=== PATIENT | male | born 1930 | race Asian ===

== ENCOUNTER 2016-08-17 18:47 | Emergency (ER) | payer MEDICARE, BC ==
[2016-08-17] MEDS ORDERED: ONDANSETRON 4 MG/2 ML VIAL IVP STA ×2 (19:43→20:54)
[2016-08-17] MEDS ORDERED: ONDANSETRON 4 MG/2 ML VIAL ONE ×2 (19:47→20:57)
[2016-08-17] MEDS ORDERED: diphenhydrAMINE INJ 50 MG/ML VIAL IVP STA (20:54)
[2016-08-17] MEDS ORDERED: SODIUM CHLORIDE 0.9% 1,000 ML IV STA (20:55)
[2016-08-17] MEDS ORDERED: SODIUM CHLORIDE 0.9% 1,000 ML IV ONE (20:57)
[2016-08-17] MEDS ORDERED: diphenhydrAMINE INJ 50 MG/ML VIAL ONE (20:57)
[2016-08-17] MEDS ORDERED: predniSONE 20 MG TABLET PO STA (22:33)
[2016-08-17] MEDS ORDERED: MECLIZINE 12.5 MG TABLET PO STA (22:33)
[2016-08-17] MEDS ORDERED: MECLIZINE 12.5 MG TABLET PO ONE (22:35)
[2016-08-17] MEDS ORDERED: predniSONE 20 MG TABLET ONE (22:35)
[2016-08-17] MEDS ORDERED: ONDANSETRON ODT 4 MG Prepack 2 TL STA (23:30)
[2016-08-17] MEDS ORDERED: ONDANSETRON ODT 4 MG Prepack 2 TL ONE (23:31)
== END 2016-08-17 23:52 | disposition home or self-care (01) ==
DX: E11.65 Type 2 diabetes mellitus with hyperglycemia (principal); Z79.4 Long term (current) use of insulin; Z96.41 Presence of insulin pump (external) (internal); R11.2 Nausea with vomiting, unspecified; T78.40XA Allergy, unspecified, initial encounter; X58.XXXA Exposure to other specified factors, initial encounter; I45.2 Bifascicular block; R94.31 Abnormal electrocardiogram [ECG] [EKG]; I50.9 Heart failure, unspecified; I25.10 Atherosclerotic heart disease of native coronary artery without angina pectoris; Z95.1 Presence of aortocoronary bypass graft; I25.2 Old myocardial infarction; I48.91 Unspecified atrial fibrillation; Z79.82 Long term (current) use of aspirin
CPT/HCPCS: 36415; 80053; 83690; 84484; 85025; 85610; 86850; 86900; 86901; 93005; 96361; 96374; 96375; 96376; 99284; A9270; J7512

== ENCOUNTER 2020-08-24 20:57 | Emergency (ER) | payer MEDICARE, BC ==
[2020-08-24] MEDS ORDERED: DEXAMETHASONE 10 MG/ML VIAL PO STA (22:37)
[2020-08-24] MEDS ORDERED: KETOROLAC 60 MG/2 ML VIAL IM STA (22:37)
[2020-08-24] MEDS ORDERED: CHERRY SYRUP 10 ML UDC PO ONE (22:37)
--- NOTE | 2020-08-24 22:40 | ED Physician Documentation ---
PD HPI NECK PAIN - Stated complaint Stated Complaint: SORE NECK - Chief complaint Chief Complaint: General - History obtained from History obtained from: Patient, Family - History of Present Illness Timing - onset: How many days ago (3) Timing - duration: Days (3) Timing - details: Abrupt onset, Still present Location: Mid, Lower, Left Quality: Pain, Spasm, Sharp Associated symptoms: No: Fever, Weakness, Numbness, Incontinent of urine, Unable to urinate, Hematuria, Incontinent of stool Improves with: Rest, Position Worsened by: Movement Contributing factors: Other (slept with grandson next to him with an elbow in the neck) Similar symptoms before: Has not had sx before Recently seen: Not recently seen - Additional information Additional information: 89-year-old male with a history of coronary artery disease hypertension and congestive heart failure spends 4 months of the year out in on [facility] and otherwise is seen in [facility]. He comes into the emerge department this evening complaining of a stiff neck. Indicates 3 days ago he was sleeping with his grandson who had an elbow in his neck and he awoke in the morning with a stiff neck and is continuing to have some difficulty moving his neck around he has about a 6-7 out of 10 pain with movement if he is not moving at all he is s omewhat uncomfortable. He is having a hard time sleeping at night because of this pain. Review of Systems Constitutional: denies: Fever Eyes: denies: Decreased vision Ears: denies: Ear pain Nose: denies: Rhinorrhea / runny nose, Congestion Throat: denies: Sore throat Cardiac: denies: Chest pain / pressure Respiratory: reports: Cough (10 days ago finished 10 days of coughing). denies: Dyspnea GI: denies: Nausea, Vomiting : denies: Dysuria Skin: denies: Rash Musculoskeletal: reports: Neck pain. denies: Back pain, Extremity pain PD PAST MEDICAL HISTORY - Past Medical History Past Medical History: Yes Cardiovascular: Congestive heart failure, Coronary artery disease, [place], Atrial fibrillation Endocrine/Autoimmune: Type 2 diabetes GI: Hiatal hernia - Past Surgical History Past Surgical History: Yes Cardiovascular: CABG, Coronary stent - Present Medications Home Medications: Ambulatory Orders Medication Instructions Recorded Confirmed Aspirin 81 mg DAILY 08/20/14 08/17/16 Clopidogrel Bisulfate [Plavix] 75 mg DAILY 08/20/14 08/17/16 Ezetimibe [Zetia] 10 mg DAILY 08/20/14 08/17/16 Fluticasone [Flonase] 1 spray BID 08/20/14 08/17/16 Furosemide [Lasix] 20 mg DAILY 08/20/14 08/17/16 Losartan [Cozaar] 25 mg DAILY 08/20/14 08/17/16 Lutein 25 mg DAILY 08/20/14 08/17/16 Metoprolol Succinate 75 mg DAILY 08/20/14 08/17/16 Nitroglycerin [Nitrostat] 0.4 mg DAILY PRN 08/20/14 09/14/14 Rosuvastatin Calcium [Crestor] 20 mg DAILY 08/20/14 08/17/16 Albuterol Sulf [Ventolin Hfa PRN 08/17/16 Inhaler] Insulin Pump Cartridge [T:Flex] 08/17/16 Meclizine [Antivert] 25 mg PO Q6H PRN #14 tablet 08/17/16 Ondansetron Odt [Zofran] 4 mg TL Q6H PRN #10 tablet 08/17/16 predniSONE [Prednisone] 40 mg PO DAILY 3 Days tablet 08/17/16 raNITIdine [Zantac] 150 mg BID 08/17/16 08/17/16 Cyclobenzaprine [Flexeril] 10 mg PO TID PRN #20 tablet 08/24/20 - Allergies Allergies/Adverse Reactions: Allergies Allergy/AdvReac Type Severity Reaction Status Date / Time No Known Drug Allergies Allergy Verified 08/24/20 21:03 - Social History Does the pt smoke?: No Smoking Status: Never smoker Does the pt drink ETOH?: No Does the pt have substance abuse?: No - Immunizations Immunizations are current?: Yes - POLST Patient has POLST: No PD ED PE NORMAL - Vitals Vital signs reviewed: Yes (hypertensive ) - General General: Alert and oriented X 3, No acute distress, Well developed/nourished - HEENT HEENT: Atraumatic, PERRL, EOMI - Neck Neck: Supple, no meningeal sign, No bony TTP, Other (There is some mild point tenderness to the sternocleidomastoid on the left side as well as the trapezius with some spasm in these muscles. He is able to flex and extend and rotate the neck he has pain with rotation to the right.) - Cardiac Cardiac: RRR, No murmur - Respiratory Respiratory: No respiratory distress, Clear bilaterally - Abdomen Abdomen: Soft, Non tender - Derm Derm: Normal color, Warm and dry, No rash - Extremities Extremities: No deformity, No edema - Neuro Neuro: Alert and oriented X 3, hand paster 2-12 intact, No motor deficit, No sensory deficit, Normal speech Eye Opening: Spontaneous Motor: Obeys Commands Verbal: Oriented GCS Score: 15 - Psych Psych: Normal mood, Normal affect Results - Vitals Vitals: Vital Signs - 24 hr 08/24/20 21:03 Temperature 36.9 C Heart Rate 87 Respiratory 18 Rate Blood Pressure 142/68 H O2 Saturation 97 Oxygen O2 Source Room air PD MEDICAL DECISION MAKING - ED course Complexity details: considered differential, d/w patient, d/w family ED course: 89-year-old male has a stiff neck after sleeping in an odd position and he has not had relief in 3 days. He is administered dexamethasone 10 mg and Toradol [address] him on a short course of Flexeril as needed. Departure - Departure Disposition: 01 Home, Self Care Clinical Impression: Acute torticollis Condition: Stable Instructions: Torticollis Follow-Up: YENY MALDONADO MD [Physician No Access] - Prescriptions: Cyclobenzaprine [Flexeril] 10 mg PO TID PRN #20 tablet PRN Reason: Spasms
[2020-08-24] MEDS ORDERED: CYCLOBENZAPRINE 10 MG Prepack 2 PO PRN (22:44)
[2020-08-24 23:36] VITALS: BP 145/65
== END 2020-08-24 23:36 | disposition home or self-care (01) ==
LOC: ED 20:57
DX: M43.6 Torticollis (principal); I25.10 Atherosclerotic heart disease of native coronary artery without angina pectoris; I11.0 Hypertensive heart disease with heart failure; I50.9 Heart failure, unspecified; Z95.1 Presence of aortocoronary bypass graft; Z95.5 Presence of coronary angioplasty implant and graft; Z79.02 Long term (current) use of antithrombotics/antiplatelets; Z79.82 Long term (current) use of aspirin; E11.9 Type 2 diabetes mellitus without complications
CPT/HCPCS: 99283; 99284; A9270

== ENCOUNTER 2020-09-01 18:21 | Outpatient (CLI) | payer MEDICARE, BC | END 2020-09-01 18:22 | disposition critical access hospital (66) | LOC: EMS 18:21 | DX: R27.0 Ataxia, unspecified (principal); R47.81 Slurred speech | CPT/HCPCS: A0425; A0427 ==

== ENCOUNTER 2020-09-01 18:35 | Inpatient (IN) | payer MEDICARE, BC ==
--- NOTE | 2020-09-01 18:45 | ED Physician Documentation ---
PD HPI FOCAL NEURO - Stated complaint Stated Complaint: STROKE SYMPTOMS - Chief complaint Chief Complaint: Neuro - History obtained from History obtained from: Patient, EMS - Additional information Additional information: Patient was at home with his family today when they noticed him have onset of difficulty walking and speaking at approximately 1545 today. This is about 3 hours prior to arrival. Has been constant since that time. EMS states mild right hand weakness when they evaluated him. He has a longstanding cardiac history with 3 cardiac stents and a bypass. No history of stroke per EMS. Upon arrival of the , she states that the symptoms might have started at about [id number] today, she is uncertain. Review of Systems Ten Systems: 10 systems reviewed and negative Constitutional: denies: Fever, Chills Ears: denies: Ear pain Nose: denies: Rhinorrhea / runny nose, Congestion Respiratory: denies: Cough GI: denies: Nausea, Vomiting, Diarrhea Skin: denies: Rash Musculoskeletal: denies: Neck pain, Back pain Neurologic: denies: Focal weakness, Numbness, Headache, Head injury PD PAST MEDICAL HISTORY - Past Medical History Past Medical History: Yes Cardiovascular: Congestive heart failure, Coronary artery disease, [place], Atrial fibrillation Endocrine/Autoimmune: Type 2 diabetes GI: Hiatal hernia - Past Surgical History Past Surgical History: Yes Cardiovascular: CABG, Coronary stent - Present Medications Home Medications: Ambulatory Orders Medication Instructions Recorded Confirmed Aspirin 81 mg DAILY 08/20/14 08/17/16 Clopidogrel Bisulfate [Plavix] 75 mg DAILY 08/20/14 08/17/16 Ezetimibe [Zetia] 10 mg DAILY 08/20/14 08/17/16 Fluticasone [Flonase] 1 spray BID 08/20/14 08/17/16 Furosemide [Lasix] 20 mg DAILY 08/20/14 08/17/16 Losartan [Cozaar] 25 mg DAILY 08/20/14 08/17/16 Lutein 25 mg DAILY 08/20/14 08/17/16 Metoprolol Succinate 75 mg DAILY 08/20/14 08/17/16 Nitroglycerin [Nitrostat] 0.4 mg DAILY PRN 08/20/14 09/14/14 Rosuvastatin Calcium [Crestor] 20 mg DAILY 08/20/14 08/17/16 Albuterol Sulf [Ventolin Hfa PRN 08/17/16 Inhaler] Insulin Pump Cartridge [T:Flex] 08/17/16 Meclizine [Antivert] 25 mg PO Q6H PRN #14 tablet 08/17/16 Ondansetron Odt [Zofran] 4 mg TL Q6H PRN #10 tablet 08/17/16 predniSONE [Prednisone] 40 mg PO DAILY 3 Days tablet 08/17/16 raNITIdine [Zantac] 150 mg BID 08/17/16 08/17/16 Cyclobenzaprine [Flexeril] 10 mg PO TID PRN #20 tablet 08/24/20 - Allergies Allergies/Adverse Reactions: Allergies Allergy/AdvReac Type Severity Reaction Status Date / Time No Known Drug Allergies Allergy Verified 09/01/20 18:51 - Social History Does the pt smoke?: No Smoking Status: Never smoker Does the pt drink ETOH?: No Does the pt have substance abuse?: No - Immunizations Immunizations are current?: Yes - POLST Patient has POLST: No PD ED PE NORMAL - Vitals Vital signs reviewed: Yes - General General: Alert and oriented X 3, No acute distress - HEENT HEENT: Moist mucous membranes - Neck Neck: Supple, no meningeal sign - Cardiac Cardiac: RRR, Strong equal pulses - Respiratory Respiratory: No respiratory distress, Clear bilaterally - Abdomen Abdomen: Soft, Non tender, Non distended - Derm Derm: Warm and dry - Extremities Extremities: No edema, No calf tenderness / cord - Neuro Neuro: Alert and oriented X 3, refurbish technician 2-12 intact, No motor deficit, No sensory deficit Eye Opening: Spontaneous Motor: Obeys Commands Verbal: Oriented GCS Score: 15 - Psych Psych: Normal mood, Normal affect NIHSS - Time Time: 18:44 - Level of Consciousness Level of consciousness: (0) Alert, Keenly responsive LOC Questions: (0) Answers both Q's correct LOC Commands: (0) Performs both correctly - Gaze Best Gaze: (0) Normal - Visual Visual: (0) No loss - Facial Palsy Facial Palsy: (0) Normal, symmetrical movement - Motor Arms (both separate) Motor Arm (right): (0) No drift Motor Arm (left): (0) No drift - Motor Legs (both separate) Motor Leg (right): (0) No drift Motor Leg (left): (0) No drift - Limb Ataxia Limb Ataxia: (1) Present in 1 limb - Sensory Sensory: (0) Normal - Best Language Best Language: (0) No aphasia - Dysarthria Dysarthria: (1) [id number] dysarthria - Extinction and Inattention (formally neg Extinction and inattention: (0) No abnormality - Total Score/Results Total Score/Result: 2 Results - Vitals Vitals: Vital Signs - 24 hr 09/01/20 09/01/20 09/01/20 18:43 18:51 19:21 Temperature 36.4 C L Heart Rate 64 62 62 Respiratory 16 16 18 Rate Blood Pressure 142/67 H 125/64 125/64 O2 Saturation 100 98 98 09/01/20 19:30 Temperature Heart Rate 64 Respiratory 16 Rate Blood Pressure 128/80 O2 Saturation 100 Oxygen O2 Source Room air - EKG (time done) 1919 Rate: Rate (enter#) (63) Rhythm: NSR Jackson: Normal Intervals: Prolonged VT, RBBB - Labs Labs: Laboratory Tests 09/01/20 09/01/20 09/01/20 18:59 18:59 18:59 WBC 5.5 RBC 4.01 L Hgb 12.6 L Hct 36.5 L MCV 91.0 MCH 31.4 H MCHC 34.5 RDW 11.5 L Plt Count 199 MPV 9.6 Neut # (Auto) 3.3 Lymph # (Auto) 1.4 L Florence # (Auto) 0.5 Eos # (Auto) 0.1 Baso # (Auto) 0.0 Absolute Nucleated RBC 0.00 Nucleated RBC % 0.0 PT 11.9 INR 1.1 APTT 25.0 Sodium 135 Potassium 4.3 Chloride 97 L Carbon Dioxide 29 Anion Gap 9.0 BUN 24 H Creatinine 1.3 H Estimated GFR (MDRD) 52 L Glucose 307 H Calcium 9.4 Total Bilirubin 0.6 AST 19 ALT 16 Alkaline Phosphatase 71 Troponin I High Sens Total Protein 7.0 Albumin 4.0 Globulin 3.0 Albumin/Globulin Ratio 1.3 Nasal Adenovirus (PCR) Nasal B. parapertussis DNA (PCR) Nasal Coronavir 229E PCR Nasal Coronavir HKU1 PCR Nasal Coronavir NL63 PCR Nasal Coronavir OC43 PCR Nasal Enterovir/Rhinovir PCR Nasal Influenza B PCR Nasal Influenza A PCR Nasal Parainfluen 1 PCR Nasal Parainfluen 2 PCR Nasal Parainfluen 3 PCR Nasal Parainfluen 4 PCR Nasal RSV (PCR) Nasal B.pertussis DNA PCR Nasal C.pneumoniae (PCR) Shai Human Metapneumo PCR Nasal M.pneumoniae (PCR) Nasal SARS-CoV-2 (PCR) 09/01/20 09/01/20 18:59 19:37 WBC RBC Hgb Hct MCV MCH MCHC RDW Plt Count MPV Neut # (Auto) Lymph # (Auto) Florence # (Auto) Eos # (Auto) Baso # (Auto) Absolute Nucleated RBC Nucleated RBC % PT INR APTT Sodium Potassium Chloride Carbon Dioxide Anion Gap BUN Creatinine Estimated GFR (MDRD) Glucose Calcium Total Bilirubin AST ALT Alkaline Phosphatase Troponin I High Sens 31.3 H* Total Protein Albumin Globulin Albumin/Globulin Ratio Nasal Adenovirus (PCR) NOT DETECTED Nasal B. parapertussis DNA (PCR) NOT DETECTED Nasal Coronavir 229E PCR NOT DETECTED Nasal Coronavir HKU1 PCR NOT DETECTED Nasal Coronavir NL63 PCR NOT DETECTED Nasal Coronavir OC43 PCR NOT DETECTED Nasal Enterovir/Rhinovir PCR NOT DETECTED Nasal Influenza B PCR NOT DETECTED Nasal Influenza A PCR NOT DETECTED Nasal Parainfluen 1 PCR NOT DETECTED Nasal Parainfluen 2 PCR NOT DETECTED Nasal Parainfluen 3 PCR NOT DETECTED Nasal Parainfluen 4 PCR NOT DETECTED Nasal RSV (PCR) NOT DETECTED Nasal B.pertussis DNA PCR NOT DETECTED Nasal C.pneumoniae (PCR) NOT DETECTED Shai Human Metapneumo PCR NOT DETECTED Nasal M.pneumoniae (PCR) NOT DETECTED Nasal SARS-CoV-2 (PCR) NOT DETECTED - Rads (name of study) head CT Radiology: Prelim report reviewed, EMP read contemporaneously, See rad report PD MEDICAL DECISION MAKING - ED course Complexity details: reviewed results, re-evaluated patient, considered differential, d/w patient ED course: 89 year old male with ataxia and mild slurred speech today. unclear time of onset. No acute findings on head CT. Telestroke was consulted and saw the patinet on video conference. No indication for TPA. We will admit the patient for stroke work-up. Discussed the case with Dr. Enciso, hospitalist who accepts This document was made in part using voice recognition software. While efforts are made to proofread this document, sound alike and grammatical errors may occur. Departure - Departure Disposition: 66 [facility] DC/Xfer Clinical Impression: Ataxia, Stroke-like symptoms Condition: Stable Discharge Date/Time: 09/01/20 20:55
--- NOTE | 2020-09-01 19:01 | CT Report ---
PROCEDURE: Head W/O Stroke Protocol INDICATIONS: ataxia, slurred speech TECHNIQUE: Noncontrast 4.5 mm thick angled axial sections acquired from the foramen magnum to the vertex, with c oronal reformats. For radiation dose reduction, the following was used: automated exposure control, adjustment of mA and/or kV according to patient size. COMPARISON: FINDINGS: Image quality: Excellent. CSF spaces: Basal cisterns are patent. No extra-axial fluid collections. Ventricles are normal in size and shape. Brain: No midline shift. No intracranial masses or hemorrhage. Age-appropriate volume loss and mil d to moderate periventricular and deep white matter chronic small vessel ischemic changes are seen. G ray-white matter interface is normal. Skull and face: Calvarium and visualized facial bones are intact, without suspicious lesions. Sinuses: Visualized sinuses and mastoids are clear. IMPRESSION: 1. No CT evidence of acute intracranial bleed, midline shift or mass effect. No gross CT evidence of acute infarction. 2. Parenchymal volume loss and moderate white matter chronic small vessel ischemic changes. This study fulfills neurological imaging criteria for inclusion or exclusion of acute stroke therapie s based on available published neurological imaging guidelines. Reviewed by: Shelton Logan MD on 09/01/2020 6:59 PM PDT Approved by: Shelton Logan MD on 09/01/2020 6:59 PM PDT Station ID: [id number]
[2020-09-01 19:04] LABS: BASOPHILS % (AUTO) 0.6 %; EOSINOPHILS # (AUTO) 0.1 10^3/uL (0.0-0.7); EOSINOPHILS % (AUTO) 2.2 %; HCT - HEMATOCRIT 36.5 % (42.0-52.0); HGB - HEMOGLOBIN 12.6 g/dL (14.0-18.0); LYMPHOCYTES # (AUTO) 1.4 10^3/uL (1.5-3.5); LYMPHOCYTES % (AUTO) 26.1 %; MEAN CORPUSCULAR HEMOGLOBIN 31.4 pg (27.0-31.0); MEAN CORPUSCULAR HGB CONC 34.5 g/dL (32.0-36.0); MEAN PLATELET VOLUME 9.6 fL (7.4-11.4); MONOCYTES # (AUTO) 0.5 10^3/uL (0.0-1.0); MONOCYTES % (AUTO) 9.7 %; NEUTROPHILS # (AUTO) 3.3 10^3/uL (1.5-6.6); NEUTROPHILS % (AUTO) 61.2 %; PLT - PLATELET COUNT 199 10^3/uL (130-450); RED BLOOD COUNT 4.01 10^6/uL (4.70-6.10); RED CELL DISTRIBUTION WIDTH 11.5 % (12.0-15.0); WHITE BLOOD COUNT 5.5 x10^3/uL (4.8-10.8)
[2020-09-01 19:11] LABS: INR 1.1 (0.8-1.2); PT - PROTHROMBIN TIME 11.9 secs (9.9-12.6)
[2020-09-01 19:17] LABS: ALBUMIN/GLOBULIN RATIO 1.3 (1.0-2.2); BILIRUBIN,TOTAL 0.6 mg/dL (0.2-1.0); CALCIUM 9.4 mg/dL (8.5-10.3); CREATININE 1.3 mg/dL (0.6-1.2); POTASSIUM 4.3 mmol/L (3.5-5.0)
[2020-09-01] MEDS ORDERED: HYDROcod/ACETAM 5/325 MG TABLET PO PRN (19:59)
[2020-09-01] MEDS ORDERED: ACETAMINOPHEN 325 MG TABLET PO PRN (19:59)
[2020-09-01] MEDS ORDERED: SODIUM CHLORIDE FLUSH 0.9% 10 ML SYRINGE IVP PRN (19:59)
[2020-09-01] MEDS ORDERED: ONDANSETRON ODT 4 MG TABLET TL PRN (19:59)
[2020-09-01 20:36] LABS: B. PARAPERTUSSIS- RESP PCR PAN NOT DETECTED; B. PERTUSSIS- RESP PCR PANEL NOT DETECTED; C. PNEUMONIAE- RESP PCR PANEL NOT DETECTED; CORONAVIRUS 229E-RESP PCR NOT DETECTED; CORONAVIRUS HKU1-RESP PCR NOT DETECTED; CORONAVIRUS NL63-RESP PCR NOT DETECTED; CORONAVIRUS OC43-RESP PCR NOT DETECTED; HUMAN METAPNEUMOVIRUS NOT DETECTED; INFLUENZA A- RESP PCR PANEL NOT DETECTED; INFLUENZA B - RESP PCR PANEL NOT DETECTED; M. PNEUMONIAE- RESP PCR PANEL NOT DETECTED; PARAINFLUENZA VIRUS 1 NOT DETECTED; PARAINFLUENZA VIRUS 2 NOT DETECTED; PARAINFLUENZA VIRUS 3 NOT DETECTED; PARAINFLUENZA VIRUS 4 NOT DETECTED; RHINOVIRUS/ENTEROVIRUS NOT DETECTED; RSV- RESP PCR PANEL NOT DETECTED; SARS-CoV-2 -RESP PCR PANEL NOT DETECTED
[2020-09-01] MEDS ORDERED: ATORVASTATIN 40 MG TABLET PO SCH (21:00)
--- NOTE | 2020-09-01 22:25 | HISTORY & PHYSICAL EXAMINATION ---
Chief Complaint - Chief Complaint Chief Complaint: Weakness, speech problem Stroke/TIA/Neuro Template - Admitted From Admitted from: ED - History Obtained From Records Reviewed: RN notes reviewed History obtained from: Patient, Family Exam limitations: No limitations - History of Present Illness Problem Location Description: Dysarthria, left-sided weakness, ataxia Severity at the worst: reports: Moderate Symptom Quality: reports: Headache, Facial droop, Slurred speech, Ataxia. denies: Numbness, Tingling, Paralysis, Expressive aphasia, Receptive aphasia, Apraxia, Syncope Context- Symptoms started w/: reports: Awake Date of onset: 09/01/20 Time of onset: 15:00 Improved with: reports: Nothing Worsened by: reports: Nothing HPI Comment/Other: Patient is an 89-year-old male with a past medical history of CAD status post CABG and stents, Atrial fibrillation status post ablation, history of type 2 diabetes mellitus on insulin, hypertension, hyperlipidemia, who presented to the emergency department after first noticing a headache followed by generalized ataxia, difficulty walking, as well as dysarthria. Patient denies any focal numbness or to his estimation, focal weakness. He was brought to the emergency room a few hours later for further evaluation and was found to be outside of the TPA window. He was evaluated by telestroke who agreed that patient was not a TPA candidate. He had a head CT in the emergency department which was unremarkable and the rest of his labs were also unremarkable and hospitalist admission was requested for further evaluation and stroke work-up. PMH/PSH - Past Medical History Cardiovascular: positive: Congestive heart failure, Coronary artery disease, [place], Atrial fibrillation Endocrine/Autoimmune: positive: Type 2 diabetes GI: positive: Hiatal hernia MRSA Hx?: No - Past Surgical History Cardiovascular: positive: CABG, Coronary stent Social & Family Hx - Living Situation Living Arrangement: At home Living Situation: With spouse/s.o. - Social History Does the pt smoke?: No Smoking Status: Never smoker Does the pt drink ETOH?: No Does the pt have substance abuse?: No - POLST Patient has POLST: No - Family History Family History: Mother: , Father: , Diabetes, Type 2 Meds/Allgy - Home Medications Home Medications: Ambulatory Orders Medication Instructions Recorded Confirmed Aspirin 81 mg DAILY 08/20/14 08/17/16 Clopidogrel Bisulfate [Plavix] 75 mg DAILY 08/20/14 08/17/16 Ezetimibe [Zetia] 10 mg DAILY 08/20/14 08/17/16 Fluticasone [Flonase] 1 spray BID 08/20/14 08/17/16 Furosemide [Lasix] 20 mg DAILY 08/20/14 08/17/16 Losartan [Cozaar] 25 mg DAILY 08/20/14 08/17/16 Lutein 25 mg DAILY 08/20/14 08/17/16 Metoprolol Succinate 75 mg DAILY 08/20/14 08/17/16 Nitroglycerin [Nitrostat] 0.4 mg DAILY PRN 08/20/14 09/14/14 Rosuvastatin Calcium [Crestor] 20 mg DAILY 08/20/14 08/17/16 Albuterol Sulf [Ventolin Hfa PRN 08/17/16 Inhaler] Insulin Pump Cartridge [T:Flex] 08/17/16 Meclizine [Antivert] 25 mg PO Q6H PRN #14 tablet 08/17/16 Ondansetron Odt [Zofran] 4 mg TL Q6H PRN #10 tablet 08/17/16 predniSONE [Prednisone] 40 mg PO DAILY 3 Days tablet 08/17/16 raNITIdine [Zantac] 150 mg BID 08/17/16 08/17/16 Cyclobenzaprine [Flexeril] 10 mg PO TID PRN #20 tablet 08/24/20 - Allergies Allergies/Adverse Reactions: Allergies Allergy/AdvReac Type Severity Reaction Status Date / Time No Known Drug Allergies Allergy Verified 09/01/20 18:51 Review of Systems - Constitutional Constitutional: reports: Fatigue, Weakness, Poor appetite. denies: Fever - Eyes Eyes: denies: Blurred vision, Spots in vision - Cardiovascular Cariovascular: denies: Irregular heart rate, Chest pain - Respiratory Respiratory: reports: SOB at rest, SOB with exertion. denies: Cough, Sputum production, Wheezing - Gastrointestinal Gastrointestinal: reports: Poor appetite - Musculoskeletal Musculoskeletal: reports: Muscle weakness - Integumentary Integumentary: denies: Rash - Neurological Neurological: reports: General weakness, Headache, Abnormal gait, Slurred speech. denies: Focal weakness, Dizziness - All Other Systems All Other Systems: reports: Reviewed and negative Prior Level of Functionality: Fully independent Exam - Vital Signs Reviewed Vital Signs: Yes Vital Signs: Vital Signs x48h Temp Pulse Pulse Resp BP BP Pulse Ox 09/01/20 21:13 36.9 C 63 20 127/67 100 09/01/20 20:30 36.5 C 62 18 111/57 L 98 09/01/20 20:00 36.5 C 65 22 111/57 L 97 09/01/20 19:30 64 16 128/80 100 09/01/20 19:21 62 18 125/64 98 09/01/20 18:51 62 16 125/64 98 09/01/20 18:43 36.4 C L 64 16 142/67 H 100 - Physical Exam General Appearance: positive: No acute distress, Alert Eyes Bilateral: positive: Normal inspection, PERRL, EOMI ENT: positive: ENT inspection nml Neck: positive: Nml inspection Respiratory: positive: Chest non-tender, No respiratory distress, Breath sounds nml Cardiovascular: positive: Regular rate & rhythm, No murmur, No gallop Peripheral Pulses: positive: 2+ Abdomen: positive: Non-tender, No organomegaly, Nml bowel sounds, No distention Skin: positive: Color nml, No rash. negative: Laceration (cm) Extremities: positive: Non-tender Neurologic/Psychiatric: positive: Oriented x3, CN's nml (2-12), Sensation nml, Mood/affect nml, Weakness, Facial droop, Slurred/abnml speech, Other (Left upper extremity weakness manifested as 3/5 handgrip, 4/5 left arm extension. Lower extremity exam with the exception of absence of left ankle dorsiflexion. Plantar flexion is preserved.). negative: Motor nml, Disoriented to person, Disoriented to place, Disoriented to time, Sensory loss, Depressed mood/affect Results - Lab Results Lab results reviewed: Yes Fish Bones: 09/01/20 18:59 09/01/20 18:59 Other Lab Results: Lab Results x24hrs 09/01/20 09/01/20 09/01/20 Range/Units 19:37 18:59 18:59 WBC (4.8-10.8) x10^3/uL RBC (4.70-6.10) 10^6/uL Hgb (14.0-18.0) g/dL Hct (42.0-52.0) % MCV (80.0-94.0) fL MCH (27.0-31.0) pg MCHC (32.0-36.0) g/dL RDW (12.0-15.0) % Plt Count (130-450) 10^3/uL MPV (7.4-11.4) fL Neut # (Auto) (1.5-6.6) 10^3/uL Lymph # (Auto) (1.5-3.5) 10^3/uL [place] # (Auto) (0.0-1.0) 10^3/uL Eos # (Auto) (0.0-0.7) 10^3/uL Baso # (Auto) (0.0-0.1) 10^3/uL Absolute Nucleated RBC x10^3/uL Nucleated RBC % /100WBC PT 11.9 (9.9-12.6) secs INR 1.1 (0.8-1.2) APTT 25.0 (24.9-33.3) secs Sodium (135-145) mmol/L Potassium (3.5-5.0) mmol/L Chloride (101-111) mmol/L Carbon Dioxide (21-32) mmol/L Anion Gap (6-13) BUN (6-20) mg/dL Creatinine (0.6-1.2) mg/dL Estimated GFR (MDRD) (>89) Glucose (70-100) mg/dL Calcium (8.5-10.3) mg/dL Total Bilirubin (0.2-1.0) mg/dL AST (10-42) IU/L ALT (10-60) IU/L Alkaline Phosphatase (42-121) IU/L Troponin I High Sens 31.3 H* (2.3-19.7) ng/L Total Protein (6.7-8.2) g/dL Albumin (3.2-5.5) g/dL Globulin (2.1-4.2) g/dL Albumin/Globulin Ratio (1.0-2.2) Nasal Adenovirus (PCR) NOT DETECTED Nasal B. parapertussis DNA (PCR) NOT DETECTED Nasal Coronavir 229E PCR NOT DETECTED Nasal Coronavir HKU1 PCR NOT DETECTED Nasal Coronavir NL63 PCR NOT DETECTED Nasal Coronavir OC43 PCR NOT DETECTED Nasal Enterovir/Rhinovir PCR NOT DETECTED Nasal Influenza B PCR NOT DETECTED Nasal Influenza A PCR NOT DETECTED Nasal Parainfluen 1 PCR NOT DETECTED Nasal Parainfluen 2 PCR NOT DETECTED Nasal Parainfluen 3 PCR NOT DETECTED Nasal Parainfluen 4 PCR NOT DETECTED Nasal RSV (PCR) NOT DETECTED Nasal B.pertussis DNA PCR NOT DETECTED Nasal C.pneumoniae (PCR) NOT DETECTED Shai Human Metapneumo PCR NOT DETECTED Nasal M.pneumoniae (PCR) NOT DETECTED Nasal SARS-CoV-2 (PCR) NOT DETECTED 09/01/20 09/01/20 Range/Units 18:59 18:59 WBC 5.5 (4.8-10.8) x10^3/uL RBC 4.01 L (4.70-6.10) 10^6/uL Hgb 12.6 L (14.0-18.0) g/dL Hct 36.5 L (42.0-52.0) % MCV 91.0 (80.0-94.0) fL MCH 31.4 H (27.0-31.0) pg MCHC 34.5 (32.0-36.0) g/dL RDW 11.5 L (12.0-15.0) % Plt Count 199 (130-450) 10^3/uL MPV 9.6 (7.4-11.4) fL Neut # (Auto) 3.3 (1.5-6.6) 10^3/uL Lymph # (Auto) 1.4 L (1.5-3.5) 10^3/uL [place] # (Auto) 0.5 (0.0-1.0) 10^3/uL Eos # (Auto) 0.1 (0.0-0.7) 10^3/uL Baso # (Auto) 0.0 (0.0-0.1) 10^3/uL Absolute Nucleated RBC 0.00 x10^3/uL Nucleated RBC % 0.0 /100WBC PT (9.9-12.6) secs INR (0.8-1.2) APTT (24.9-33.3) secs Sodium 135 (135-145) mmol/L Potassium 4.3 (3.5-5.0) mmol/L Chloride 97 L (101-111) mmol/L Carbon Dioxide 29 (21-32) mmol/L Anion Gap 9.0 (6-13) BUN 24 H (6-20) mg/dL Creatinine 1.3 H (0.6-1.2) mg/dL Estimated GFR (MDRD) 52 L (>89) Glucose 307 H (70-100) mg/dL Calcium 9.4 (8.5-10.3) mg/dL Total Bilirubin 0.6 (0.2-1.0) mg/dL AST 19 (10-42) IU/L ALT 16 (10-60) IU/L Alkaline Phosphatase 71 (42-121) IU/L Troponin I High Sens (2.3-19.7) ng/L Total Protein 7.0 (6.7-8.2) g/dL Albumin 4.0 (3.2-5.5) g/dL Globulin 3.0 (2.1-4.2) g/dL Albumin/Globulin Ratio 1.3 (1.0-2.2) Nasal Adenovirus (PCR) Nasal B. parapertussis DNA (PCR) Nasal Coronavir 229E PCR Nasal Coronavir HKU1 PCR Nasal Coronavir NL63 PCR Nasal Coronavir OC43 PCR Nasal Enterovir/Rhinovir PCR Nasal Influenza B PCR Nasal Influenza A PCR Nasal Parainfluen 1 PCR Nasal Parainfluen 2 PCR Nasal Parainfluen 3 PCR Nasal Parainfluen 4 PCR Nasal RSV (PCR) Nasal B.pertussis DNA PCR Nasal C.pneumoniae (PCR) Shai Human Metapneumo PCR Nasal M.pneumoniae (PCR) Nasal SARS-CoV-2 (PCR) - Diagnostic Imaging Results Diagnostic Imaging Results: positive: Final report reviewed - EKG Results EKG Interpreted Independently: Yes EKG Comparison: positive: No prior EKG Impression/Plan - Problem List Problem List: #Dysarthria #Left-sided weakness #Ataxia Suspected embolic CVA given patient's known history of A. fib, despite status post ablation Admit for further stroke work-up Brain MRI tomorrow Lipid panel in the morning A1c in the morning PT/OT/SLT eval's Permissive hypertension Carotid ultrasound Echocardiogram with bubble study in the morning Consider remote telemetry monitoring upon discharge for evaluation of cryptogenic atrial fibrillation #Hypertension #Hyperlipidemia Resume home meds with the exception of Crestor, will replace with atorvastatin 80 mg daily #Type 2 diabetes mellitus Hold home medications Insulin sliding scale for coverage #CAD Stable Cont home meds #Elevated Creatinine Unclear if this is ROB or CKD Baseline not known Repeat labs in am, and hold off on contrast studies, nephrotoxic meds #Code status DNR Core Measures - Anticipated LOS I expect patient to be DC'd or transferred within 96 hours.: Yes - DVT/VTE - Prophylaxis VTE/DVT Device ordered at admit?: Yes
[2020-09-02 05:29] LABS: HCT - HEMATOCRIT 34.8 % (42.0-52.0); MEAN CORPUSCULAR HEMOGLOBIN 31.3 pg (27.0-31.0); MEAN CORPUSCULAR HGB CONC 34.5 g/dL (32.0-36.0); MEAN CORPUSCULAR VOLUME 90.6 fL (80.0-94.0); MEAN PLATELET VOLUME 10.1 fL (7.4-11.4); RED BLOOD COUNT 3.84 10^6/uL (4.70-6.10); RED CELL DISTRIBUTION WIDTH 11.7 % (12.0-15.0); WHITE BLOOD COUNT 5.3 x10^3/uL (4.8-10.8)
[2020-09-02 05:46] LABS: BUN - BLOOD UREA NITROGEN 22 mg/dL (6-20); CALCIUM 9.2 mg/dL (8.5-10.3); CARBON DIOXIDE - CO2 26 mmol/L (21-32); CHLORIDE 101 mmol/L (101-111); CHOL/HDL RATIO 2.2 (<5.0); CHOLESTEROL 127 mg/dL; CREATININE 1.1 mg/dL (0.6-1.2); GFR - MDRD 63 (>89); GLUCOSE 219 mg/dL (70-100); HDL CHOLESTEROL 57 mg/dL; LDL CHOLESTEROL,CALCULATED 54 mg/dL; LDL/HDL RATIO 0.9 (<3.6); POTASSIUM 3.8 mmol/L (3.5-5.0); SODIUM 136 mmol/L (135-145); TRIGLYCERIDES 79 mg/dL; VLDL CHOLESTEROL 16 mg/dL
[2020-09-02] MEDS: SODIUM CHLORIDE FLUSH 0.9% 10 ML SYRINGE IVP SCH ×3 (07:45→17:42)
[2020-09-02] MEDS ORDERED: ASPIRIN 325 MG TABLET PO SCH (08:00)
[2020-09-02] MEDS ORDERED: FUROSEMIDE 20 MG TABLET PO SCH (09:00)
[2020-09-02] MEDS ORDERED: CLOPIDOGREL 75 MG TABLET PO SCH (09:00)
[2020-09-02] MEDS ORDERED: METOPROLOL SUCCINATE 50 MG TABLET PO SCH (09:00)
[2020-09-02] MEDS ORDERED: FAMOTIDINE 20 MG TABLET PO SCH (09:00)
[2020-09-02] MEDS ORDERED: RANITIDINE 150 MG PO SCH (09:00)
[2020-09-02] MEDS ORDERED: LOSARTAN 50 MG TABLET PO SCH (09:00)
[2020-09-02] MEDS ORDERED: LUTEIN 20 MG PO SCH (09:00)
[2020-09-02] MEDS ORDERED: LOSARTAN 25 MG PO SCH (09:00)
[2020-09-02 09:48] LABS: ESTIMATED AVERAGE GLUCOSE 189 mg/dL (70-100); HEMOGLOBIN A1c% 8.2 % (4.27-6.07)
--- NOTE | 2020-09-02 10:58 | Ultrasound Report ---
PROCEDURE: Carotid Doppler Complete INDICATIONS: Suspected CVA TECHNIQUE: Color and pulse Doppler interrogation was performed of both carotid systems, with image documentation and velocity measurements. COMPARISON: None. FINDINGS: Right side: Common carotid artery peak systolic velocity: 67 cm/sec. Internal carotid artery peak systolic velocity: 69 cm/sec. Internal carotid artery end diastolic velocity: 21 cm/sec. External carotid artery peak systolic velocity: 63 cm/sec. ICA/CCA peak systolic ratio: 1.0 . Triana scale imaging description: Mild plaque. Percent internal carotid artery stenosis: No hemodynamically significant stenosis . Vertebral artery: Flow direction is antegrade. Left side: Common carotid artery peak systolic velocity: 82 cm/sec. Internal carotid artery peak systolic velocity: 91 cm/sec. Internal carotid artery end diastolic velocity: 28 cm/sec. External carotid artery peak systolic velocity: 103 cm/sec. ICA/CCA peak systolic ratio: 1.1 . Triana scale imaging description: Moderate to severe plaque Percent internal carotid artery stenosis: Less than 50% . Vertebral artery: Flow direction is antegrade. IMPRESSION: Less than 50% stenosis of the left internal carotid artery. No hemodynamically significant stenosis is present at the right internal carotid artery. The estimate of stenosis included in the report of the imaging study was calculated using the NASCET method Reviewed by: Rosa Maria David MD on 09/02/2020 10:57 AM PDT Approved by: Rosa Maria David MD on 09/02/2020 10:57 AM PDT Station ID: [id number]
[2020-09-02] MEDS: FLUTICASONE NASAL SPRAY NAS SCH ×2 (11:56→21:48)
[2020-09-02] MEDS: INSULIN ASPART 300 UNIT/3 ML PEN SUBQ SCH ×4 (11:59→21:47)
--- NOTE | 2020-09-02 12:04 | PHARMACY PROGRESS NOTE ---
- Best Possible Medication History Admit Date and Time: 09/01/201958 Processed by: Pharmacy Medication History completed: Yes Patient Interview: Completed Secondary Source(s): Other family member, Pharmacy records, Insurance records As the person ultimately responsible for medication therapy, providers are able to order a medication from an existing home medication list in [facility] via the "Reconcile Routine" prior to Confirmation of that medication by desktop support engineer. Such practice is discouraged except when the physician, in their clinical judgment, deems that a medical need exists for a medication without regard to previous use.
[2020-09-02] MEDS ORDERED: D5NS W/20 MEQ KCL 1,000 ML IV SCH (14:00)
[2020-09-02] MEDS: Ezetimibe [Zetia] 10 MG Tablet PO SCH (14:07)
[2020-09-02] MEDS: ASPIRIN 300 MG SUPP PR SCH (14:51)
[2020-09-02] MEDS ORDERED: RIVAROXABAN 10 MG TABLET PO SCH (17:00)
[2020-09-02] MEDS: METOPROLOL 5 MG/5 ML VIAL IVP SCH (17:42)
[2020-09-02] MEDS: D5NS W/20 MEQ KCL 1,000 ML IV SCH (17:54)
--- NOTE | 2020-09-02 19:18 | PROVIDER PROGRESS NOTE ---
Assessment/Plan - Problem List (1) Acute CVA (cerebrovascular accident) Assessment/Plan: The patient has persistent focal, severe neuro deficits consistent with a stroke: L arm and leg weakness, speech has improved. The work-up for etiology continues: He is on telemetry, no A. fib has been seen. He underwent A. fib ablation 5 years ago. Echo has been done and shows a cardiomyopathy (see below) Carotid Dopplers have been done and show only mild atherosclerosis. The brain MRI could not be done until there is more information about the type of metal in his penile implant which the will get tonight, his brain MRI has been postponed until tomorrow. He is on daily aspirin. All of his p.o. meds had to be changed to IV forms or topical or per rectum because he cannot swallow. Awaiting speech therapy swallowing evaluation. PT and OT evaluations also ordered and he will likely need SNF or Inpt stroke rehab for aggressive rehab. (2) HTN (hypertension) Assessment/Plan: Will allow permissive hypertension for several days. His p.o. metoprolol was switched to IV metoprolol while he is undergoing swallowing evaluation before a diet is resumed. (3) Cardiomyopathy Assessment/Plan: The Echo result was remarkably abnormal: He has LVEF of 35%. I asked the patient and at bedside if there is any history of cardiomyo yola, CHF, or old AK and they both knew nothing of these diagnoses. The , at the end of my visit, happened to remark that his bearing press machine operator, who did the Afib ablation "advised against an external defibrillator to allow him to naturally". This is remarkable because a defibrillator would not be discussed with a patient unless they have an LVEF of less than 40%. Therefore it is suspected that this patient has had a previously known cardiomyopathy. We have no records regarding this. They have no PCP in the area. Their PCP is in [place]. They used to have this Senior Systems Analyst at [facility] but he has moved to [place]. There is been no doctor visits to anybody in 4 years she said. [facility] Many of his medications were discontinued today but the beta-sujey was changed to IV form. He will need to have spironolactone, and JOSE D or ARB started or resumed. (4) Diabetes mellitus Assessment/Plan: He was made n.p.o. including meds today when the RN witnessed aspiration of his morning meds. IV fluids have been started since he is a diabetic. Start sliding scale insulin for n.p.o. patient. Advance his diet when possible. (5) ROB (acute kidney injury) Assessment/Plan: He did have mildly elevated BUN/creatinine at admission, Avoid nephrotoxins. Continue hydration. Follow BMP daily (6) Hyperlipidemia Assessment/Plan: That medication is on hold. We will check a lipid panel to assess that he is good LDL and triglyceride control (7) Hx of coronary artery disease Assessment/Plan: The history of CABG and stenting is remote, even older than the A. fib ablation which was 4 to 5 years ago - Current Meds Current Meds: Current Medications Generic Name Dose Route Start Last Admin Trade Name Freq PRN Reason Stop Dose Admin Aspirin 300 mg 09/02/20 13:48 09/02/20 14:51 Aspirin 300 Mg Supp [place] 300 mg DAILY DORIAN Administration Fluticasone Propionate 1 sprays 09/02/20 09:00 09/02/20 11:56 Fluticasone Nasal [place] VINCENT Not Given BID DORIAN Potassium Chloride/Dextrose/Sod Cl 1,000 mls @ 50 mls/hr 09/02/20 16:27 09/02/20 17:54 D5ns W/20 Meq Kcl IV 50 mls/hr .Q20H DORIAN Administration Insulin Aspart 1 - 9 unit 09/02/20 08:00 09/02/20 17:35 Insulin Aspart 300 Unit/3 Ml Pen SUBQ 7 unit 0800,1200,1700,2100 DORIAN Administration Protocol Metoprolol Tartrate 2.5 mg 09/02/20 18:00 09/02/20 17:42 Metoprolol 5 Mg/5 Ml Vial IVP 2.5 mg Q6HR DORIAN Administration Ezetimibe [Zetia] 10 1 each 09/02/20 12:00 09/02/20 14:07 Mg Tablet PO Not Given DAILY DORIAN Sodium Chloride 10 ml 09/02/20 01:00 09/02/20 17:42 Sodium Chloride Flush 0.9% 10 Ml Syringe IVP Not Given 0100,0900,1700 DORIAN - Lab Result Fish Bone Diagrams: 09/02/20 04:50 09/02/20 04:50 - Additional Planning My Orders: My Active Orders 09/02/20 Clinical Swallow Evaluation [ST] Routine 09/02/20 13:48 Aspirin Supp [Aspirin] 300 mg [place] DAILY 09/02/20 Dinner Dysphagia Puree Diet [DIET] 09/02/20 16:27 D5ns W/20 Meq KCl 1,000 ml IV 50 mls/hr 09/02/20 18:00 Metoprolol Inj [Lopressor Inj] 2.5 mg IVP Q6HR 09/03/20 08:00 BRAIN WO [MRI] Routine Subjective - Subjective Patient Reports: Resting Comfortably, Other (The is at bedside and reports that he had wosening leg weakness and was unable to swallow this morning) Objective Vital Signs: Vital Signs - 24 hr 09/01/20 09/01/20 09/01/20 19:21 19:30 20:00 Temperature 36.5 C Heart Rate 62 64 65 Heart Rate [ Brachial] Respiratory 18 16 22 Rate Blood Pressure 125/64 128/80 111/57 L Blood Pressure [Right Brachial artery] O2 Saturation 98 100 97 09/01/20 09/01/20 09/01/20 20:30 21:13 23:48 Temperature 36.5 C 36.9 C 36.8 C Heart Rate 62 Heart Rate [ 63 55 L Brachial] Respiratory 18 20 18 Rate Blood Pressure 111/57 L Blood Pressure 127/67 137/65 H [Right Brachial artery] O2 Saturation 98 100 100 09/02/20 09/02/20 09/02/20 07:45 12:21 17:38 Temperature 36.5 C 36.1 C L Heart Rate Heart Rate [ 56 L 62 65 Brachial] Respiratory 18 16 17 Rate Blood Pressure Blood Pressure 124/60 133/63 H 161/68 H [Right Brachial artery] O2 Saturation 97 99 100 09/02/20 09/02/20 09/02/20 17:42 17:44 17:54 Temperature Heart Rate Heart Rate [ 63 60 Brachial] Respiratory Rate Blood Pressure 161/68 H Blood Pressure 164/60 H 153/65 H [Right Brachial artery] O2 Saturation Oxygen O2 Source Room air I&O (Last 24 Hrs): Intake and Output Totals x24h 08/31/20 09/01/20 09/02/20 23:59 23:59 23:59 Intake Total 480 Output Total 550 Balance -70 General: Alert, Oriented x3 HEENT: Other (Mucosa dry) Neck: Supple, No JVD (No bruits) Neuro: Alert, Other (L arm 3/5 strength, L leg and foot 3/5 styregth, speech is normal) Cardiovascular: Regular rate, No murmurs Respiratory: No respiratory distress, Breath sounds nml Abdomen: Normal bowel sounds, Soft Extremities: No clubbing, No edema, No tenderness/swelling - Results Results: Laboratory Results WBC 5.3 x10^3/uL (4.8-10.8) 09/02/20 04:50 RBC 3.84 10^6/uL (4.70-6.10) L 09/02/20 04:50 Hgb 12.0 g/dL (14.0-18.0) L 09/02/20 04:50 Hct 34.8 % (42.0-52.0) L 09/02/20 04:50 MCV 90.6 fL (80.0-94.0) 09/02/20 04:50 MCH 31.3 pg (27.0-31.0) H 09/02/20 04:50 MCHC 34.5 g/dL (32.0-36.0) 09/02/20 04:50 RDW 11.7 % (12.0-15.0) L 09/02/20 04:50 Plt Count 194 10^3/uL (130-450) 09/02/20 04:50 MPV 10.1 fL (7.4-11.4) 09/02/20 04:50 Neut # (Auto) 3.3 10^3/uL (1.5-6.6) 09/01/20 18:59 Lymph # (Auto) 1.4 10^3/uL (1.5-3.5) L 09/01/20 18:59 [place] # (Auto) 0.5 10^3/uL (0.0-1.0) 09/01/20 18:59 Eos # (Auto) 0.1 10^3/uL (0.0-0.7) 09/01/20 18:59 Baso # (Auto) 0.0 10^3/uL (0.0-0.1) 09/01/20 18:59 Absolute Nucleated RBC 0.00 x10^3/uL 09/01/20 18:59 Nucleated RBC % 0.0 /100WBC 09/01/20 18:59 PT 11.9 secs (9.9-12.6) 09/01/20 18:59 INR 1.1 (0.8-1.2) 09/01/20 18:59 APTT 25.0 secs (24.9-33.3) 09/01/20 18:59 Sodium 136 mmol/L (135-145) 09/02/20 04:50 Potassium 3.8 mmol/L (3.5-5.0) 09/02/20 04:50 Chloride 101 mmol/L (101-111) 09/02/20 04:50 Carbon Dioxide 26 mmol/L (21-32) 09/02/20 04:50 Anion Gap 9.0 (6-13) 09/02/20 04:50 BUN 22 mg/dL (6-20) H 09/02/20 04:50 Creatinine 1.1 mg/dL (0.6-1.2) 09/02/20 04:50 Estimated GFR (MDRD) 63 (>89) L 09/02/20 04:50 Glucose 219 mg/dL (70-100) H 09/02/20 04:50 Estimat Average Glucose 189 mg/dL (70-100) H 09/02/20 04:50 Hemoglobin A1c % 8.2 % (4.27-6.07) H 09/02/20 04:50 Calcium 9.2 mg/dL (8.5-10.3) 09/02/20 04:50 Total Bilirubin 0.6 mg/dL (0.2-1.0) 09/01/20 18:59 AST 19 IU/L (10-42) 09/01/20 18:59 ALT 16 IU/L (10-60) 09/01/20 18:59 Alkaline Phosphatase 71 IU/L (42-121) 09/01/20 18:59 Troponin I High Sens 25.8 ng/L (2.3-19.7) H* 09/02/20 16:40 Total Protein 7.0 g/dL (6.7-8.2) 09/01/20 18:59 Albumin 4.0 g/dL (3.2-5.5) 09/01/20 18:59 Globulin 3.0 g/dL (2.1-4.2) 09/01/20 18:59 Albumin/Globulin Ratio 1.3 (1.0-2.2) 09/01/20 18:59 Triglycerides 79 mg/dL (-149) 09/02/20 04:50 Cholesterol 127 mg/dL (-199) 09/02/20 04:50 LDL Cholesterol, Calc 54 mg/dL (-129) 09/02/20 04:50 VLDL Cholesterol 16 mg/dL 09/02/20 04:50 HDL Cholesterol 57 mg/dL (60-) L 09/02/20 04:50 LDL/HDL Ratio 0.9 (<3.6) 09/02/20 04:50 Cholesterol/HDL Ratio 2.2 (<5.0) 09/02/20 04:50 Nasal Adenovirus (PCR) NOT DETECTED 09/01/20 19:37 Nasal B. parapertussis DNA (PCR) NOT DETECTED 09/01/20 19:37 Nasal Coronavir 229E PCR NOT DETECTED 09/01/20 19:37 Nasal Coronavir HKU1 PCR NOT DETECTED 09/01/20 19:37 Nasal Coronavir NL63 PCR NOT DETECTED 09/01/20 19:37 Nasal Coronavir OC43 PCR NOT DETECTED 09/01/20 19:37 Nasal Enterovir/Rhinovir PCR NOT DETECTED 09/01/20 19:37 Nasal Influenza B PCR NOT DETECTED 09/01/20 19:37 Nasal Influenza A PCR NOT DETECTED 09/01/20 19:37 Nasal Parainfluen 1 PCR NOT DETECTED 09/01/20 19:37 Nasal Parainfluen 2 PCR NOT DETECTED 09/01/20 19:37 Nasal Parainfluen 3 PCR NOT DETECTED 09/01/20 19:37 Nasal Parainfluen 4 PCR NOT DETECTED 09/01/20 19:37 Nasal RSV (PCR) NOT DETECTED 09/01/20 19:37 Nasal B.pertussis DNA PCR NOT DETECTED 09/01/20 19:37 Nasal C.pneumoniae (PCR) NOT DETECTED 09/01/20 19:37 [place] Human Metapneumo PCR NOT DETECTED 09/01/20 19:37 Nasal M.pneumoniae (PCR) NOT DETECTED 09/01/20 19:37 Nasal SARS-CoV-2 (PCR) NOT DETECTED 09/01/20 19:37
[2020-09-03] MEDS: SODIUM CHLORIDE FLUSH 0.9% 10 ML SYRINGE IVP SCH ×4 (00:11→23:27)
[2020-09-03] MEDS: METOPROLOL 5 MG/5 ML VIAL IVP SCH ×3 (00:11→13:32)
[2020-09-03 05:33] LABS: HCT - HEMATOCRIT 35.9 % (42.0-52.0); HGB - HEMOGLOBIN 12.5 g/dL (14.0-18.0); MEAN CORPUSCULAR HEMOGLOBIN 31.6 pg (27.0-31.0); MEAN CORPUSCULAR HGB CONC 34.8 g/dL (32.0-36.0); MEAN CORPUSCULAR VOLUME 90.9 fL (80.0-94.0); MEAN PLATELET VOLUME 9.9 fL (7.4-11.4); RED BLOOD COUNT 3.95 10^6/uL (4.70-6.10); RED CELL DISTRIBUTION WIDTH 11.6 % (12.0-15.0); WHITE BLOOD COUNT 7.2 x10^3/uL (4.8-10.8)
[2020-09-03 05:53] LABS: BUN - BLOOD UREA NITROGEN 18 mg/dL (6-20); CALCIUM 9.1 mg/dL (8.5-10.3); CARBON DIOXIDE - CO2 25 mmol/L (21-32); CHLORIDE 104 mmol/L (101-111); CHOL/HDL RATIO 2.2 (<5.0); CHOLESTEROL 127 mg/dL; GFR - MDRD 70 (>89); GLUCOSE 244 mg/dL (70-100); HDL CHOLESTEROL 58 mg/dL; LDL CHOLESTEROL,CALCULATED 50 mg/dL; LDL/HDL RATIO 0.9 (<3.6); SODIUM 137 mmol/L (135-145); TRIGLYCERIDES 94 mg/dL; VLDL CHOLESTEROL 19 mg/dL
[2020-09-03] MEDS: Ezetimibe [Zetia] 10 MG Tablet PO SCH (08:15)
[2020-09-03] MEDS: FLUTICASONE NASAL SPRAY NAS SCH ×2 (08:15→21:15)
[2020-09-03] MEDS: D5NS W/20 MEQ KCL 1,000 ML IV SCH (11:36)
[2020-09-03] MEDS ORDERED: INSULIN ASPART 300 UNIT/3 ML PEN SUBQ SCH ×2 (12:00→12:25)
--- NOTE | 2020-09-03 12:23 | PROVIDER PROGRESS NOTE ---
Subjective - Prog Note Date Prog Note Date: 09/03/20 Prog Note Time: 12:18 - Subjective Pt reports feeling: Improved Subjective: His voice is getting a little bit stronger. Leg is moving a little bit better. His arm is still as weak as it was yesterday. He and his had a "moment" this morning. Apparently he tried to get up on his own. He did not tell anybody and walked in and found him trying to walk to the bathroom to urinate. She was very angry with him. Prior to the stroke he was considered completely independent. Active gentleman. He is only activity of daily living that he did not do was driving. That was bec ause of macular degeneration. He left to drive and that was a blow to his feeling of happiness. Current Medications - Current Medications Current Medications: Active Medications Aspirin (Aspirin 300 Mg Supp) 300 mg OR DAILY [facility] Last Admin: 09/02/20 14:51 Dose: 300 mg Documented by: Fluticasone Propionate (Fluticasone Nasal [place]) 1 sprays VINCENT BID [facility] Last Admin: 09/03/20 08:15 Dose: 1 spr Documented by: Potassium Chloride/Dextrose/Sod Cl (D5ns W/20 Meq Kcl) 1,000 mls @ 50 mls/hr IV .Q20H [facility] Last Admin: 09/03/20 11:36 Dose: 50 mls/hr Documented by: Insulin Aspart (Insulin Aspart 300 Unit/3 Ml Pen) 2 - 10 unit SUBQ 0800,1200,1700,2100 [facility]; Protocol Last Admin: 09/03/20 08:14 Dose: 6 unit Documented by: Metoprolol Tartrate (Metoprolol 5 Mg/5 Ml Vial) 2.5 mg IVP Q6HR [facility] Last Admin: 09/03/20 05:42 Dose: Not Given Documented by: Ondansetron HCl (Ondansetron Odt 4 Mg Tablet) 4 mg TL Q6HR PRN PRN Reason: Nausea / Vomiting Ezetimibe [Zetia] 10 (Mg Tablet) 1 each PO DAILY [facility] Last Admin: 09/03/20 08:15 Dose: 1 each Documented by: Sodium Chloride (Sodium Chloride Flush 0.9% 10 Ml Syringe) 10 ml IVP PRN PRN PRN Reason: NEEDED PER PROVIDER ORDERS Sodium Chloride (Sodium Chloride Flush 0.9% 10 Ml Syringe) 10 ml IVP 0100,0900,1700 [facility] Last Admin: 09/03/20 08:27 Dose: Not Given Documented by: Aspirin 81 mg PO DAILY 08/20/14 Clopidogrel Bisulfate [Plavix] 75 mg PO DAILY 08/20/14 Ezetimibe [Zetia] 10 mg PO DAILY 08/20/14 Fluticasone [Flonase] 2 spray VINCENT BID 08/20/14 Furosemide [Lasix] 20 mg PO DAILY 08/20/14 Losartan [Cozaar] 25 mg PO DAILY 08/20/14 Nitroglycerin [Nitrostat] 0.4 mg SL DAILY PRN 08/20/14 Rosuvastatin Calcium [Crestor] 40 mg PO HS 08/20/14 Clomiphene Citrate [Serophene] 50 mg PO DAILY 09/02/20 Gabapentin [Neurontin] 200 mg PO HS 09/02/20 Metoprolol Tartrate [Lopressor] 50 mg PO DAILY 09/02/20 Objective - Vital Signs/Intake & Output Reviewed Vital Signs: Yes Vital Signs: Vital Signs x48h Temp Pulse Resp BP BP Pulse Ox 09/03/20 08:00 36.3 C L 70 18 137/53 H 98 09/03/20 05:42 158/75 H Intake & Output: Intake & Output 08/31/20 09/01/20 09/02/20 09/03/20 23:59 23:59 23:59 23:59 Intake Total 1142 1425 Output Total 550 Balance 592 1425 - Objective General Appearance: positive: No acute distress, Alert, Other (Laying in bed, already eaten his pured breakfast. at the bedside.) Eyes Bilateral: positive: PERRL, EOMI ENT: positive: No signs of dehydration Neck: positive: No JVD. negative: Stiff neck Respiratory: positive: No respiratory distress. negative: Wheezes, Rales, Rhonchi Cardiovascular: positive: Regular rate & rhythm, Systolic murmur. negative: Gallop/S4, Friction rub Abdomen: positive: Non-tender, No organomegaly, Nml bowel sounds, No distention Skin: positive: Warm, Dry Extremities: positive: Full ROM (left leg is weak. He prefers to flex his elbow and hold his left arm against his chest wall.), No pedal edema Neurologic/Psychiatric: positive: Oriented x3, Facial droop, Slurred/abnml speech. negative: CN's nml (2-12) (Left facial droop, hoarse voice,), Motor nml (Left arm can be lifted up off the bed and slid across the bed. But if he has to hold anything in his arm with weight, he cannot lift it. Even a glass of water. Left leg can be moved horizontally against the bed but cannot be lifted up.), Depressed mood/affect - Lab Results Fish Bones: 09/03/20 04:50 09/03/20 04:50 Other Labs: Lab Results x24hrs 09/03/20 09/03/20 09/02/20 Range/Units 04:50 04:50 16:40 WBC 7.2 (4.8-10.8) x10^3/uL RBC 3.95 L (4.70-6.10) 10^6/uL Hgb 12.5 L (14.0-18.0) g/dL Hct 35.9 L (42.0-52.0) % MCV 90.9 (80.0-94.0) fL MCH 31.6 H (27.0-31.0) pg MCHC 34.8 (32.0-36.0) g/dL RDW 11.6 L (12.0-15.0) % Plt Count 184 (130-450) 10^3/uL MPV 9.9 (7.4-11.4) fL Sodium 137 (135-145) mmol/L Potassium 4.0 (3.5-5.0) mmol/L Chloride 104 (101-111) mmol/L Carbon Dioxide 25 (21-32) mmol/L Anion Gap 8.0 (6-13) BUN 18 (6-20) mg/dL Creatinine 1.0 (0.6-1.2) mg/dL Estimated GFR (MDRD) 70 L (>89) Glucose 244 H (70-100) mg/dL Calcium 9.1 (8.5-10.3) mg/dL Troponin I High Sens 25.8 H* (2.3-19.7) ng/L Triglycerides 94 ( - 149) mg/dL Cholesterol 127 ( - 199) mg/dL LDL Cholesterol, Calc 50 ( - 129) mg/dL VLDL Cholesterol 19 mg/dL HDL Cholesterol 58 L (60 - ) mg/dL LDL/HDL Ratio 0.9 (<3.6) Cholesterol/HDL Ratio 2.2 (<5.0) ABX Reporting Has patient been on IV antibiotics over the past 48 hours?: No Assessment/Plan - Problem List (1) Acute CVA (cerebrovascular accident) Impression: The patient has persistent focal, initially severe and now moderate neuro deficits consistent with a stroke: L arm and leg weakness, speech continue to improve. The work-up for etiology continues: He is on telemetry, no A. fib has been seen. He underwent A. fib ablation 5 years ago. Echo has been done and shows a cardiomyopathy (see below) Carotid Dopplers have been done and show only mild atherosclerosis. His doctor in [place] has sent test information about the penile implant. It looks like he is going to go to MRI of the head today. He is on daily aspirin. All of his p.o. meds had to be changed to IV forms or topical or per rectum because he cannot swallow. Speech therapy stated that his swallowing was adequate to be in a regular diet. But the patient himself stated that he feels safer doing a pured diet. When he eats regular food he feels like is going to choke.To be kept on a pured diet, and IV/topical, per rectum medications until he is ready to go to p.o. Physical therapy and Occupational Therapy evaluations done today. He is a candidate for inpatient stroke rehab. hat body inspector and social science analyst and I will work on identifying facilities that he can go to. [place] 3 [place] [facility] and [facility]. The also wants us to know that they live in a [place] community in [facility] It is a flexible community that allows you to go from complete independent living, to assisted living, to SNF if you need something. They plan on returning there in October. (2) HTN (hypertension) Assessment/Plan: Permissive hypertension is usually allowed for 48 to 72 hours. He is now day 3. At home he was on losartan 25 mg, metoprolol 50 mg. Currently on Lopressor 2.5 mg IV push as needed hypertension. Start losartan daily if he can swallow. Then gradually add the metoprolol p.o. if we can. (3) Cardiomyopathy Assessment/Plan: The Echo result was remarkably abnormal: He has LVEF of 35%. The previous hospitalist, Dr. Pierce, asked the patient and at bedside if there is any history of cardiomyopathy, CHF, or old ND and they both knew nothing of these diagnoses. The , at the end of my visit, happened to remark that his engraver jewelry, who did the Afib ablation "advised against an external defibrillator to allow him to naturally". This is remarkable because a defibrillator would not be discussed with a patient unless they have an LVEF of less than 40%. Therefore it is suspected that this patient has had a previously known cardiomyopathy. Many of his medications were discontinued 09/02 but the beta-sujey was changed to IV form. He will need to have spironolactone, and JOSE D or ARB and Plavix, ASA resumed. Records were reviewed from [facility] in [place]. He was followed by Dr. Savannah Alegre. Left heart cath June 2017 was reviewed. He had a history of coronary artery disease and had a CABG in 1989 and had cardiac cath in 2011 judy wing occluded left main and patent AMIN to the LAD with 75 to 90% stenosis at the anastomosis to the LAD and patent sequential SVG to diagonal and obtuse marginal but with diffuse [place] disease. LVEF 30 to 35% at that time. He also underwent stenting of the RCA 2011. Increasing shortness of breath and fatigue 2018. Repeat heart cath had totally occluded left main with patent AMIN to the LAD with diffuse disease distal to the anastomosis to the LAD. No stenosis of the proximal left subclavian artery. Patent sequential saphenous vein graft to the OM branch and DX branch. Very small and diffusely diseased OM branch and DX branches. Not amenable to PCI. Patent RCA with mild to moderate stenosis. There are right to left collaterals. Patent stent in the proximal to mid RCA. Severe LV systolic dysfunction with high normal left ventricle end-diastolic pressure and no significant gradient across the aortic valve. Basically findings from 2018 not much different from findings in 2012. Recommendations were to optimize medical therapy, aspirin, Plavix. (4) Diabetes mellitus, controlled, with retinal and neuropathy complications Assessment/Plan: He was made n.p.o. including meds 09/02 when the RN witnessed aspiration of his morning meds. IV fluids have been started since he is a diabetic. Start sliding scale insulin for n.p.o. patient. Advance his diet when possible. The pharmacist was able to get better insurance records and claims records. He does aspartate insulin with meals, and Tresiba in the morning. He then has a sliding scale insulin on top of that. From a formulary perspective we will be starting him on Lantus, aspartate with meals, and sliding scale aspartate. (5) ROB (acute kidney injury) improving Assessment/Plan: He did have mildly elevated BUN/creatinine at admission Creatinine 1.3>> 1.1>> 1.0 today. Avoid nephrotoxins. Continue hydration. Follow BMP daily (6) Hyperlipidemia Assessment/Plan: That medication is on hold. Triglycerides done twice this admission. 79/94. Cholesterol 127/127. LDL 54/50. HDL 57/58. So his control is very good. We will resume the statin once he is taking p.o. safely. (7) Hx of coronary artery disease Assessment/Plan: The history of CABG and stenting is remote, even older than the A. fib ablation which was 4 to 5 years ago. Resume all of his medications that control his risk. Aspirin, Plavix, beta-sujey, diuretic, statin. Control his diabetes.
--- NOTE | 2020-09-03 12:48 | MRI Report ---
PROCEDURE: Brain W/O INDICATIONS: SUSPECTED CVA TECHNIQUE: Noncontrast axial T1 spin echo, axial T2 fast spin echo, sagittal and axial FLAIR, coronal T2 fast sp in echo, axial gradient echo, axial diffusion and ADC through the brain. COMPARISON: None. FINDINGS: Image quality: Excellent. CSF Spaces: Basal cisterns are patent. No extra-axial fluid collections. Ventricles are normal in size and shape. Brain: No intracranial masses or hemorrhage. Triana/white matter interface is normal. Brainstem appe ars normal. Restricted diffusion noted in the right aspect of the cruz compatible with acute/subacute infarct. There is moderate, diffuse cerebral volume loss. There are minimal periventricular and subc ortical white matter chronic microvascular ischemic changes. Normal intravascular flow voids are pres ent. Skull and face: Calvarium has normal marrow signal. Orbits appear normal. Sinuses: Sinuses and mastoids are clear. IMPRESSION: 1. Acute/subacute right pontine infarct. 2. No intracranial hemorrhage. 3. Moderate, diffuse cerebral volume loss. 4. Minimal periventricular and subcortical white matter chronic microvascular ischemic change. Reviewed by: Elida Mei MD, PhD on 09/03/2020 12:46 PM PDT Approved by: Elida Mei MD, PhD on 09/03/2020 12:46 PM PDT Station ID: [id number]
[2020-09-03] MEDS: ASPIRIN 300 MG SUPP PR SCH (13:32)
[2020-09-03] MEDS: INSULIN GLARGINE 300 UNIT/3 ML PEN SUBQ SCH (14:04)
[2020-09-03] MEDS: INSULIN ASPART 300 UNIT/3 ML PEN SUBQ SCH ×3 (17:49→21:16)
[2020-09-04 05:01] LABS: HGB - HEMOGLOBIN 11.9 g/dL (14.0-18.0); MEAN CORPUSCULAR VOLUME 91.1 fL (80.0-94.0); MEAN PLATELET VOLUME 10.5 fL (7.4-11.4); RED BLOOD COUNT 3.84 10^6/uL (4.70-6.10); RED CELL DISTRIBUTION WIDTH 11.6 % (12.0-15.0)
[2020-09-04 05:10] LABS: CALCIUM 8.8 mg/dL (8.5-10.3); CREATININE 1.2 mg/dL (0.6-1.2); POTASSIUM 4.4 mmol/L (3.5-5.0)
[2020-09-04] MEDS: INSULIN ASPART 300 UNIT/3 ML PEN SUBQ SCH ×7 (08:13→21:29)
[2020-09-04] MEDS: INSULIN GLARGINE 300 UNIT/3 ML PEN SUBQ SCH (08:14)
[2020-09-04] MEDS: SODIUM CHLORIDE FLUSH 0.9% 10 ML SYRINGE IVP SCH ×2 (08:15→18:02)
[2020-09-04] MEDS: D5NS W/20 MEQ KCL 1,000 ML IV SCH (08:15)
[2020-09-04] MEDS: METOPROLOL TARTRATE 50 MG TABLET PO SCH (08:17)
[2020-09-04] MEDS: FLUTICASONE NASAL SPRAY NAS SCH ×2 (08:17→21:29)
[2020-09-04] MEDS: Ezetimibe [Zetia] 10 MG Tablet PO SCH (08:17)
[2020-09-04] MEDS: ASPIRIN EC 81 MG TABLET PO SCH (08:17)
--- NOTE | 2020-09-04 16:24 | PROVIDER PROGRESS NOTE ---
Subjective - Prog Note Date Prog Note Date: 09/04/20 Prog Note Time: 16:21 - Subjective Subjective: is concerned because he is so sleepy today. He does awaken and speak to her. Is appropriate. But yesterday he seems so much more energetic and inte ractive. Today he just wants to sleep all day. There have been no fevers. No chills. No abdominal pain. No cough. Current Medications - Current Medications Current Medications: Active Medications Aspirin (Aspirin Ec 81 Mg Tablet) 81 mg PO DAILY [facility]S [facility]CLUDE 234 BEDS AT [facility] Last Admin: 09/04/20 08:17 Dose: 81 mg Documented by: Fluticasone Propionate (Fluticasone Nasal [place]) 1 sprays VINCENT BID COUNTS INCLUDE 234 BEDS AT THE [facility] Last Admin: 09/04/20 08:17 Dose: 1 spr Documented by: Potassium Chloride/Dextrose/Sod Cl (D5ns W/20 Meq Kcl) 1,000 mls @ 50 mls/hr IV .Q20H COUNTS INCLUDE 234 BEDS AT THE [facility] Last Admin: 09/04/20 08:15 Dose: 50 mls/hr Documented by: Sodium Chloride (Normal Saline 0.9%) 500 mls @ 999 mls/hr IV ONCE ONE Stop: 09/04/20 16:57 Insulin Aspart (Insulin Aspart 300 Unit/3 Ml Pen) 3 unit SUBQ QDDINNER COUNTS INCLUDE 234 BEDS AT THE [facility] Last Admin: 09/03/20 17:49 Dose: 3 unit Documented by: Insulin Aspart (Insulin Aspart 300 Unit/3 Ml Pen) 3 unit SUBQ QDLUNCH COUNTS INCLUDE 234 BEDS AT THE [facility] Last Admin: 09/04/20 12:29 Dose: 3 unit Documented by: Insulin Aspart (Insulin Aspart 300 Unit/3 Ml Pen) 5 unit SUBQ QDBREAKFAST COUNTS INCLUDE 234 BEDS AT THE [facility] Last Admin: 09/04/20 08:13 Dose: 5 unit Documented by: Insulin Aspart (Insulin Aspart 300 Unit/3 Ml Pen) 1 - 5 unit SUBQ 0800,1200,1700,2100 COUNTS INCLUDE 234 BEDS AT THE [facility]; Protocol Last Admin: 09/04/20 12:29 Dose: 2 unit Documented by: Insulin Glargine (Insulin Glargine 300 Unit/3 Ml Pen) 10 unit SUBQ DAILY [facility]S INCLUDE 234 BEDS AT THE [facility] Last Admin: 09/04/20 08:14 Dose: 10 unit Documented by: Metoprolol Tartrate (Metoprolol Tartrate 50 Mg Tablet) 50 mg PO DAILY [facility]S INCLUDE 234 BEDS AT THE [facility] Last Admin: 09/04/20 08:17 Dose: 50 mg Documented by: Ondansetron HCl (Ondansetron Odt 4 Mg Tablet) 4 mg TL Q6HR PRN PRN Reason: Nausea / Vomiting Ezetimibe [Zetia] 10 (Mg Tablet) 1 each PO DAILY [facility]CLUDE 234 BEDS AT THE [facility] Last Admin: 09/04/20 08:17 Dose: 1 each Documented by: Sodium Chloride (Sodium Chloride Flush 0.9% 10 Ml Syringe) 10 ml IVP PRN PRN PRN Reason: NEEDED PER PROVIDER ORDERS Sodium Chloride (Sodium Chloride Flush 0.9% 10 Ml Syringe) 10 ml IVP 0100,0900,1700 COUNTS INCLUDE 234 BEDS AT THE [facility] Last Admin: 09/04/20 08:15 Dose: 10 ml Documented by: Aspirin 81 mg PO DAILY 08/20/14 Clopidogrel Bisulfate [Plavix] 75 mg PO DAILY 08/20/14 Ezetimibe [Zetia] 10 mg PO DAILY 08/20/14 Fluticasone [Flonase] 2 spray VINCENT BID 08/20/14 Furosemide [Lasix] 20 mg PO DAILY 08/20/14 Losartan [Cozaar] 25 mg PO DAILY 08/20/14 Nitroglycerin [Nitrostat] 0.4 mg SL DAILY PRN 08/20/14 Rosuvastatin Calcium [Crestor] 40 mg PO HS 08/20/14 Clomiphene Citrate [Serophene] 50 mg PO MOWEFR 09/02/20 Gabapentin [Neurontin] 200 mg PO HS 09/02/20 Metoprolol Tartrate [Lopressor] 50 mg PO DAILY 09/02/20 Hydrocortisone 20 mg PO DAILYWM 09/03/20 Insulin Aspart (Niacinamide) [Fiasp 100 Unit/ml Flext[place]] 0 - 5 unit SUBQ ACHS PRN 09/03/20 Insulin Aspart (Niacinamide) [Fiasp 100 Unit/ml Flextouch] 3 unit SUBQ QDDINNER 09/03/20 Insulin Aspart (Niacinamide) [Fiasp 100 Unit/ml Flextouch] 3 unit SUBQ QDLUNCH 09/03/20 Insulin Aspart (Niacinamide) [Fiasp 100 Unit/ml Flextouch] 5 unit SUBQ QDBREAKFAST 09/03/20 Insulin Degludec [Tresiba] 10 unit SUBQ DAILY 09/03/20 Objective - Vital Signs/Intake & Output Reviewed Vital Signs: Yes Intake & Output: Intake & Output 09/01/20 09/02/20 09/03/20 09/04/20 23:59 23:59 23:59 23:59 Intake Total 1142 3089.167 765.833 Output Total 550 Balance 592 3089.167 765.833 - Objective General Appearance: positive: No acute distress, Other (Sleeping upright in his chair. He wakens easily to my greeting. Speech is still slurred, slow. He does definitely appear more fatigued today than he did yesterday. But there is no worsening of hemiplegia.) ENT: positive: Dry mucous membranes Neck: positive: No JVD. negative: Stiff neck Respiratory: positive: No respiratory distress. negative: Wheezes, Rales, Rhonchi Cardiovascular: positive: Irregularly irregular, Systolic murmur. negative: Gallop/S4, Friction rub Abdomen: positive: Non-tender, No organomegaly, Nml bowel sounds, No distention Skin: positive: Warm, Dry Extremities: positive: Full ROM, No pedal edema Neurologic/Psychiatric: positive: Disoriented to time, Facial droop, Slurred/abnml speech. negative: CN's nml (2-12) (Left facial droop, dysarthria, dysphagia), Motor nml (Left hemiplegia.) - Lab Results Fish Bones: 09/04/20 04:20 09/04/20 04:20 Other Labs: Lab Results x24hrs 09/04/20 09/04/20 Range/Units 04:20 04:20 WBC 13.0 H (4.8-10.8) x10^3/uL RBC 3.84 L (4.70-6.10) 10^6/uL Hgb 11.9 L (14.0-18.0) g/dL Hct 35.0 L (42.0-52.0) % MCV 91.1 (80.0-94.0) fL MCH 31.0 (27.0-31.0) pg MCHC 34.0 (32.0-36.0) g/dL RDW 11.6 L (12.0-15.0) % Plt Count 174 (130-450) 10^3/uL MPV 10.5 (7.4-11.4) fL Sodium 134 L (135-145) mmol/L Potassium 4.4 (3.5-5.0) mmol/L Chloride 102 (101-111) mmol/L Carbon Dioxide 24 (21-32) mmol/L Anion Gap 8.0 (6-13) BUN 21 H (6-20) mg/dL Creatinine 1.2 (0.6-1.2) mg/dL Estimated GFR (MDRD) 57 L (>89) Glucose 311 H (70-100) mg/dL Calcium 8.8 (8.5-10.3) mg/dL ABX Reporting Has patient been on IV antibiotics over the past 48 hours?: No Assessment/Plan - Problem List (1) Acute CVA (cerebrovascular accident) Impression: The patient has persistent focal, initially severe and now moderate neuro deficits consistent with a stroke: L arm and leg weakness, speech continue to improve. Today he is very sleepy and it alarms the but he is easily wakened and will answer questions appropriately. Most likely ischemic stroke. He is on telemetry, no A. fib has been seen. He underwent A. fib ablation 5 years ago. Echo has been done and shows a cardiomyopathy (see below) Carotid Dopplers have been done and show only mild atherosclerosis. His doctor in [place] has sent test information about the penile implant. MRI of the brain confirms pontine stroke, most likely ischemic, and no midline shift, no surrounding edema. He is on daily aspirin. Yesterday we had him on a pured diet, and were trying to limit the amount of p.o. intake because of swallowing. However speech therapy has evaluated him and yesterday evening he can go to taking his pills and continuing his pured diet. Physical therapy evaluated him and feel that he is a good candidate for inpatient rehab. Plan: Discharge nurse and social work working on getting an inpatient rehab facility. I have discussed the case with his . The patient. Again, she stresses that she would like to see him [place] (2) HTN (hypertension) Assessment/Plan: Permissive hypertension is usually allowed for 48 to 72 hours. He is now day 3. At home he was on losartan 25 mg, metoprolol 50 mg. Currently on Lopressor 2.5 mg IV push as needed hypertension. On metoprolol 50 mg p.o. twice daily. Systolic is 113-117. I will not be resuming his losartan right now. I do not know if there is a link between his sleepiness today, and having his blood pressure a little lower. I have explained to the that if he has worsening of his hemiplegia, I will be repeating the CT of the head. (3) Cardiomyopathy Assessment/Plan: The Echo result was remarkably abnormal: He has LVEF of 35%. The previous hospitalist, Dr. Pierce, asked the patient and at bedside if there is any history of cardiomyopathy, CHF, or old [place] and they both knew nothing of these diagnoses. The , at the end of my visit, happened to remark that his meter calibrator, who did the Afib ablation "advised against an external defibrillator to allow him to naturally". This is remarkable because a defibrillator would not be discussed with a patient unless they have an LVEF of less than 40%. Therefore it is suspected that this patient has had a previously known cardiomyopathy. Many of his medications were discontinued 09/02 but the beta-sujey was changed to IV form. He will need to have spironolactone, and JOSE D or ARB and Plavix, ASA resumed. Records were reviewed from [facility] in [place]. He was followed by Dr. Savannah Alegre. Left heart cath June 2017 was reviewed. He had a history of coronary artery disease and had a CABG in 1989 and had cardiac cath in 2011 s howing occluded left main and patent AMIN to the LAD with 75 to 90% stenosis at the anastomosis to the LAD and patent sequential SVG to diagonal and obtuse marginal but with diffuse tolowa dee-ni' disease. LVEF 30 to 35% at that time. He also underwent stenting of the RCA 2011. Increasing shortness of breath and fatigue 2017. Repeat heart cath had totally occluded left main with patent AMIN to the LAD with diffuse disease distal to the anastomosis to the LAD. No stenosis of the proximal left subclavian artery. Patent sequential saphenous vein graft to the OM branch and DX branch. Very small and diffusely diseased OM branch and DX branches. Not amenable to PCI. Patent RCA with mild to moderate stenosis. There are right to left collaterals. Patent stent in the proximal to mid RCA. Severe LV systolic dysfunction with high normal left ventricle end-diastolic pressure and no significant gradient across the aortic valve. Basically findings from 2018 not much different from findings in 2012. Recommendations were to optimize medical therapy, aspirin, Plavix. Today his blood pressure is a little lower, this is with resumption of his Lopressor. Glucose is higher. Creatinine is higher. Plan: 500 cc normal saline bolus (4) Diabetes mellitus, controlled, with retinal and neuropathy complications Assessment/Plan: He was made n.p.o. including meds 09/02 when the RN witnessed aspiration of his morning meds. IV fluids have been started since he is a diabetic. Start sliding scale insulin for n.p.o. patient. Advance his diet when possible. The pharmacist was able to get better insurance records and claims records. He does aspartate insulin with meals, and Tresiba in the morning. He then has a sliding scale insulin on top of that. From a formulary perspective we will be starting him on Lantus, aspartate with meals, and sliding scale aspartate. September 03: 235, 274, 231, 182. Today: 246, 208. And this is in spite of decreased p.o. intake because he is sleepy. We will continue current dosing of Lantus and short acting insulin (5) ROB (acute kidney injury) improving Assessment/Plan: He did have mildly elevated BUN/creatinine at admission Creatinine 1.3>> 1.1>> 1.0>>1.2 today. Avoid nephrotoxins. Continue hydration.500 cc bolus today. Follow BMP daily (6) Hyperlipidemia Assessment/Plan: That medication is on hold. Triglycerides done twice this admission. 79/94. Cholesterol 127/127. LDL 54/50. HDL 57/58. So his control is very good. We will resume the statin once he is taking p.o. safely. (7) Hx of coronary artery disease Assessment/Plan: The history of CABG and stenting is remote, even older than the A. fib ablation which was 4 to 5 years ago. Resume all of his medications that control his risk. Aspirin, Plavix, beta-sujey, diuretic, statin. Control his diabetes.
[2020-09-04] MEDS ORDERED: SODIUM CHLORIDE 0.9% 500 ML IV ONE (16:27)
[2020-09-05] MEDS: SODIUM CHLORIDE FLUSH 0.9% 10 ML SYRINGE IVP SCH ×2 (04:26→10:27)
[2020-09-05] MEDS: D5NS W/20 MEQ KCL 1,000 ML IV SCH (04:41)
[2020-09-05] MEDS: INSULIN GLARGINE 300 UNIT/3 ML PEN SUBQ SCH (08:00)
[2020-09-05] MEDS: INSULIN ASPART 300 UNIT/3 ML PEN SUBQ SCH ×4 (08:00→12:14)
--- NOTE | 2020-09-05 09:20 | DISCHARGE SUMMARY ---
"Discharge Summary Admit Date: 09/01/20 Discharge Date: 09/05/20 Discharging Provider: Teri Walden MD Code Status: Do Not Attempt Resuscitation Condition at Discharge: Stable Discharge Disposition: 02 Transfer Acute Care Hosp Discharge Facility Name: [facility] - DIAGNOSES Discharge Diagnoses with Status of Each Condition: 1. 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 Chronic systolic congestive heart failure 3. History of atrial fibrillation, currently normal sinus rhythm. 4. Hypertension 5. Hyperlipidemia 6. Type 2 diabetes mellitus, controlled with complications of macular degeneration, with use of long-term insulin. - HPI History of Present Illness: Patient is an 89-year-old male with a past medical history of CAD status post CABG and stents, Atrial fibrillation status post ablation, history of type 2 diabetes mellitus on insulin, hypertension, hyperlipidemia, who presented to the emergency department after first noticing a headache followed by generalized ataxia, difficulty walking, as well as dysarthria. Patient denies any focal numbness or to his estimation, focal weakness. He was brought to the emergency room a few hours later for further evaluation and was found to be outside of the TPA window. He was evaluated by telestroke who agreed that patient was not a TPA candidate. He had a head CT in the emergency department which was unremarkable and the rest of his labs were also unremarkable and hospitalist admission was requested for further evaluation and stroke work-up. PMH/PSH - Past Medical History Cardiovascular: positive: Congestive heart failure, Coronary artery disease, [place], Atrial fibrillation Endocrine/Autoimmune: positive: Type 2 diabetes GI: positive: Hiatal hernia MRSA Hx?: No - Past Surgical History Cardiovascular: positive: CABG, Coronary stent - CONSULTS | PROCEDURES Procedures: 1. CT of the head showed no acute intracranial bleed, midline shift, or mass- effect. No gross CT evidence of acute infarction. Parenchymal volume loss and moderate white matter chronic small vessel ischemic changes. 2. MRI of the brain shows acute/subacute right pontine infarct. No intracranial hemorrhage. Moderate, diffuse cerebral volume loss. Minimal periventricular and subcortical white matter chronic microvascular ischemic changes. 3. carotid Doppler. Less than 50% stenosis of the left internal carotid artery. No hemodynamically significant stenosis present in the right internal c arotid artery. 4. Echocardiogram had a left ventricle that was normal. LV ejection fraction 30 to 35%. Moderate global hypokinesis of LV contractility. Right ventricle normal in size and function. Mild to moderate organic mitral regurgitation. - HOSPITAL COURSE Hospital Course: The patient was not considered a TPA candidate. He was placed in inpatient status and began immediate evaluation with physical therapy. Medical management included statin and aspirin and permissive hypertension. Blood pressure medicine was not started until the third day. He is hemiplegia has improved gradually. He is still weak in the left arm and leg with the leg weaker than the arm. Still has less facial droop. Some dysarthria. Initial choking has resolved and he is now eating a pured diet, and taking his medications p.o. His diabetes mellitus was treated with insulin, both long and short acting. Hemoglobin A1c was 8.2% on admission. Initial troponin was 31.3 and subsequently dropped to 25.8 and we felt this was just demand ischemia. Mild acute kidney insufficiency was noted on admission with a creatinine of 1.3. By discharge she was 1.2. Blood pressure was never truly elevated. His usual blood pressure medicines were resumed by the third day of admission. Although the was not aware that he had a history of congestive heart failure, we obtained old records from his cardiology group. He has known cardiomyopathy and has had so for several years. Ejection fraction appears stable. There is no acute component to his disease. He is considered a candidate for inpatient rehab. And will be transferred to [facility]. Exam at discharge is a temperature of 36.4. Heart rate 63. Blood pressure 123/58. Respirations 18. 98% on room air. He is a balta, thin 5 foot 4 inch [place] male who weighs 40.5 kg. Alert, oriented. Able to participate in care planning. is at the bedside. On general exam he has a left facial droop, wearing glasses. I observed him feeding himself breakfast this morning of oatmeal and raisins. Neck is supple no JVD or bruits. Lungs are clear to auscultation and percussion. Regular rate and rhythm. Abdomen is benign. Extremities are without edema. Neurologically the left facial droop, dysarthric speech, hoarse voice, left body weakness is present. He is able to use his left arm and move it but not able to lift much with it. Greater than 30 minutes spent was spent coordinating discharge, discussing with the family and the patient his progress and plan treatment. - ALLERGIES Allergies/Adverse Reactions: Allergies Allergy/AdvReac Type Severity Reaction Status Date / Time No Known Drug Allergies Allergy Verified 09/01/20 18:51 - MEDICATIONS Home Medications: Ambulatory Orders Medication Instructions Recorded Confirmed Aspirin 81 mg PO DAILY 08/20/14 09/02/20 Clopidogrel Bisulfate [Plavix] 75 mg PO DAILY 08/20/14 09/02/20 Ezetimibe [Zetia] 10 mg PO DAILY 08/20/14 09/02/20 Fluticasone [Flonase] 2 spray VINCENT BID 08/20/14 09/02/20 Furosemide [Lasix] 20 mg PO DAILY 08/20/14 09/02/20 Losartan [Cozaar] 25 mg PO DAILY 08/20/14 09/02/20 Nitroglycerin [Nitrostat] 0.4 mg SL DAILY PRN 08/20/14 09/02/20 Rosuvastatin Calcium [Crestor] 40 mg PO HS 08/20/14 09/02/20 Clomiphene Citrate [Serophene] 50 mg PO MOWEFR 09/02/20 09/03/20 Gabapentin [Neurontin] 200 mg PO HS 09/02/20 09/02/20 Metoprolol Tartrate [Lopressor] 50 mg PO DAILY 09/02/20 09/02/20 Hydrocortisone 20 mg PO DAILYWM 09/03/20 09/03/20 Insulin Aspart (Niacinamide) 0 - 5 unit SUBQ ACHS PRN 09/03/20 09/03/20 [Fiasp 100 Unit/ml Flextouch] Insulin Aspart (Niacinamide) 3 unit SUBQ QDDINNER 09/03/20 09/03/20 [Fiasp 100 Unit/ml Flextouch] Insulin Aspart (Niacinamide) 3 unit SUBQ QDLUNCH 09/03/20 09/03/20 [Fiasp 100 Unit/ml Flextouch] Insulin Aspart (Niacinamide) 5 unit SUBQ [id number] 09/03/20 09/03/20 [Fiasp 100 Unit/ml Flextouch] Insulin Degludec [Tresiba] 10 unit SUBQ DAILY 09/03/20 09/03/20 - LABS Result Diagrams: 09/04/20 04:20 09/04/20 04:20"
--- NOTE | 2020-09-05 09:40 | Discharge Plan ---
Discharge Plan Problem Reviewed?: Yes Disposition: 02 Transfer Acute Care Hosp Condition: Stable No Smoking: If you smoke, Please STOP! Call for help.
[2020-09-05] MEDS: METOPROLOL TARTRATE 50 MG TABLET PO SCH (10:26)
[2020-09-05] MEDS: FLUTICASONE NASAL SPRAY NAS SCH (10:27)
[2020-09-05] MEDS: Ezetimibe [Zetia] 10 MG Tablet PO SCH (10:27)
[2020-09-05] MEDS: ASPIRIN EC 81 MG TABLET PO SCH (10:27)
[2020-09-05 10:28] VITALS: BP 143/53
== END 2020-09-05 13:45 | disposition short-term general hospital (02) | DRG 65 ==
LOC: EDUNIT# → ED 18:35 → MS3 19:59 → OBSVTOIN 09-02 11:13
PROVIDERS: ADMIT Family Medicine Sports Medicine; ATTEND Specialist
DX: R29.898 Other symptoms and signs involving the musculoskeletal system (principal); I63.89 Other cerebral infarction; R47.81 Slurred speech; Z20.822 Contact with and (suspected) exposure to COVID-19; I50.9 Heart failure, unspecified; G81.94 Hemiplegia, unspecified affecting left nondominant side; I48.91 Unspecified atrial fibrillation; I50.22 Chronic systolic (congestive) heart failure; I42.9 Cardiomyopathy, unspecified; N17.9 Acute kidney failure, unspecified; E11.9 Type 2 diabetes mellitus without complications; R47.1 Dysarthria and anarthria; R29.810 Facial weakness; R09.89 Other specified symptoms and signs involving the circulatory and respiratory systems; I11.0 Hypertensive heart disease with heart failure; E78.5 Hyperlipidemia, unspecified; Z79.4 Long term (current) use of insulin; I25.10 Atherosclerotic heart disease of native coronary artery without angina pectoris; Z95.1 Presence of aortocoronary bypass graft; Z95.5 Presence of coronary angioplasty implant and graft; Z79.02 Long term (current) use of antithrombotics/antiplatelets; I25.2 Old myocardial infarction; Z79.899 Other long term (current) drug therapy; R27.0 Ataxia, unspecified; Z66 Do not resuscitate; T17.990A Other foreign object in respiratory tract, part unspecified in causing asphyxiation, initial encounter; R13.10 Dysphagia, unspecified; Z79.82 Long term (current) use of aspirin; E11.40 Type 2 diabetes mellitus with diabetic neuropathy, unspecified; E11.319 Type 2 diabetes mellitus with unspecified diabetic retinopathy without macular edema; Z86.79 Personal history of other diseases of the circulatory system; H35.30 Unspecified macular degeneration
CPT/HCPCS: 36415; 70450; 70551; 80048; 80053; 80061; 83036; 84484; 85025; 85027; 85610; 85730; 87631; 87635; 92610; 93005; 93306; 93880; 97116; 97163; 97166; 97530; 99285; A9270; G0378; J1815; 0202U; 83721

== ENCOUNTER 2020-10-08 09:31 | Outpatient (CLI) | payer MEDICARE, BC ==
[2020-10-08 10:06] LABS: CALCIUM 10.2 mg/dL (8.5-10.3); CREATININE 1.1 mg/dL (0.6-1.2); POTASSIUM 4.3 mmol/L (3.5-5.0)
== END 2020-10-08 09:32 | disposition home or self-care (01) ==
LOC: LAB 09:31
DX: E11.59 Type 2 diabetes mellitus with other circulatory complications (principal); E11.22 Type 2 diabetes mellitus with diabetic chronic kidney disease; N18.30 Chronic kidney disease, stage 3 unspecified; E88.81 Metabolic syndrome and other insulin resistance; Z13.228 Encounter for screening for other metabolic disorders
CPT/HCPCS: 36415; 80048; 81599; 84681; 86341